=== PATIENT | female | born 1955 | race Caucasian/White ===

== ENCOUNTER 2016-09-28 17:29 | Inpatient (IN) | payer BC, OTHER ==
[2016-09-28] MEDS ORDERED: Sodium Chloride 0.9% 10 ML Syringe FLUSH PRN ×3 (18:23→19:55)
[2016-09-28] MEDS ORDERED: HYDROmorphone 1 MG/ML Syringe IVPUSH ONE (18:23)
--- NOTE | 2016-09-28 18:27 | EDM.PDOC ---
ED HPI GI/ABDOMINAL - General Chief Complaint: Abdominal Pain Stated Complaint: RT SIDE PAIN Time Seen by Provider: 09/28/16 18:13 Source: Reports: Patient, Family, RN notes reviewed History Limitations: Reports: No limitations - History of Present Illness INITIAL COMMENTS - FREE TEXT/NARRATIVE: 61-year-old female presents emergency department day complaint of right upper quadrant pain she states that the pain for last couple days it is constant in nature positions do make a difference worse when lying down no change with food denies any fevers nausea vomiting problems with bowel movements she still passing gas does have a history of gastric bypass 3 years ago - Related Data Allergies/ADRs: Allergies Allergy/AdvReac Type Severity Reaction Status Date / Time cefoxitin Allergy Nausea Verified 08/13/14 07:50 Home Meds: Home Meds Calcium Carb/Vit D3/Minerals [Calcium 1,200 mg Tablet Chew] 1 each PO BID [History] Cholecalciferol (Vitamin D3) [Vitamin D3] 5,000 unit PO DAILY 06/05/14 [History] Multivitamin [Multi Vitamin Daily] 1 each CHEW BID 06/05/14 [History] Vitamin B Complex [B Complex] 1 tab PO DAILY 06/05/14 [History] Pantoprazole [Protonix] 40 mg PO DAILY 08/13/14 [History] hydrOXYzine Pamoate [Hydroxyzine Pamoate] 25 mg PO ASDIRECTED PRN 09/28/16 [ History] Past Medical History Gastrointestinal History: Reports: GERD - Past Surgical History GI Surgical History: Reports: Bariatric procedure Female Surgical History: Reports: Hysterectomy Musculoskeletal Surgical History: Reports: Hip replacement Social & Family History - Tobacco Use Smoking Status *Q: Never Smoker Second Hand Smoke Exposure: No - Caffeine Use Caffeine Use: Reports: Coffee - Alcohol Use Days Per Week of Alcohol Use: 0 - Recreational Drug Use Recreational Drug Use: No ED ROS GENERAL - Review of Systems Review Of Systems: See Below Constitutional: Denies: fever, chills HEENT: Reports: No symptoms Respiratory: Reports: No Symptoms Cardiovascular: Reports: No symptoms GI/Abdominal: Reports: Abdominal pain, Flatus. Denies: Constipation, Diarrhea, Nausea, Vomiting : Reports: no symptoms Musculoskeletal: Reports: no symptoms Skin: Reports: no symptoms Neurological: Reports: No Symptoms ED EXAM, GI/ABD - Physical Exam Exam: See Below Exam Limited By: No limitations General Appearance: alert, WD/WN, no apparent distress Eyes: bilateral: normal appearance Head: atraumatic, normocephalic Respiratory/Chest: no respiratory distress, lungs clear, normal breath sounds, no accessory muscle use Cardiovascular: regular rate, rhythm, no murmur GI/Abdominal: normal bowel sounds, soft, no organomegaly, no distention, no abnormal bruit, no mass, tenderness (Right upper quadrant), guarding Back Exam: No: CVA tenderness (R), CVA tenderness (L) Course - Vital Signs Last Recorded V/S: Last Vital Signs Temp 96.4 F 09/28/16 19:46 Pulse 71 09/28/16 19:46 Resp 16 09/28/16 19:46 BP 118/72 09/28/16 19:46 Pulse Ox 98 09/28/16 19:46 - Orders/Labs/Meds Orders: Active Orders 24 hr Category Date Time Status Peripheral IV Care [RC] . DIRECTED Care 09/28/16 18:24 Active Abdomen Ltd [US] Urgent Exams 09/28/16 18:23 Taken Abdomen Pelvis w Cont [CT] Stat Exams 09/28/16 19:32 Taken Iopamidol [Isovue-300 (61%)] Med 09/28/16 20:00 Active 105 ml IV . DIRECTED Lactated Ringers [Ringers, Lactated] 1,000 ml Med 09/28/16 19:35 Active IV BOLUS Sodium Chloride 0.9% [Saline Flush] Med 09/28/16 18:23 Active 10 ml FLUSH ASDIRECTED PRN Sodium Chloride 0.9% [Saline Flush] Med 09/28/16 18:23 Active 10 ml FLUSH ASDIRECTED PRN Sodium Chloride 0.9% [Saline Flush] Med 09/28/16 19:55 Active 10 ml FLUSH ONETIME PRN Peripheral IV Insertion Adult [OM.PC] Urgent Oth 09/28/16 18:23 Ordered Medication Orders Lactated Ringer's (Ringers, Lactated) 1,000 mls @ 500 mls/hr IV BOLUS ONE Stop: 09/28/16 21:34 Last Admin: 09/28/16 19:42 Dose: 500 mls/hr Iopamidol (Isovue-300 (61%)) 105 ml IV . DIRECTED JAYA Last Admin: 09/28/16 20:06 Dose: 150 ml Sodium Chloride (Saline Flush) 10 ml FLUSH ASDIRECTED PRN PRN Reason: Keep Vein Open Last Admin: 09/28/16 18:40 Dose: 10 ml Sodium Chloride (Saline Flush) 10 ml FLUSH ASDIRECTED PRN PRN Reason: Keep Vein Open Last Admin: 09/28/16 18:44 Dose: 10 ml Sodium Chloride (Saline Flush) 10 ml FLUSH ONETIME PRN PRN Reason: PER RADIOLOGY PROTOCOL Last Admin: 09/28/16 20:06 Dose: 10 ml Labs: Laboratory Tests 09/28/16 09/28/16 09/28/16 Range/Units 18:31 18:38 18:38 WBC 8.2 (4.5-11.0) K/uL RBC 4.09 (3.30-5.50) M/uL Hgb 12.5 D (12.0-15.0) g/dL Hct 37.3 (36.0-48.0) % MCV 91 (80-98) fL MCH 31 (27-31) pg MCHC 34 (32-36) % Plt Count 408 H (150-400) K/uL Neut % (Auto) 58 (36-66) % Lymph % (Auto) 29 (24-44) % [place] % (Auto) 11 H (2-6) % Eos % (Auto) 2 (2-4) % Baso % (Auto) 1 (0-1) % Sodium 147 (140-148) mmol/L Potassium 4.4 (3.6-5.2) mmol/L Chloride 108 (100-108) mmol/L Carbon Dioxide 28 (21-32) mmol/L Anion Gap 10.6 (5.0-14.0) mmol/L BUN 12 (7-18) mg/dL Creatinine 0.7 (0.6-1.0) mg/dL Est Cr Clr Drug Dosing 73.80 mL/min Estimated GFR (MDRD) > 60 (>60) Glucose 81 (74-106) mg/dL Lactic Acid (0.4-2.0) mmol/L Calcium 8.5 (8.5-10.1) mg/dL Total Bilirubin 0.2 (0.2-1.0) mg/dL AST 26 (15-37) U/L ALT 35 (12-78) U/L Alkaline Phosphatase 133 H (46-116) U/L Total Protein 7.1 (6.4-8.2) g/dL Albumin 3.9 (3.4-5.0) g/dL Globulin 3.2 (2.3-3.5) g/dL Albumin/Globulin Ratio 1.2 (1.2-2.2) Lipase 196 (73-393) U/L Urine Color Yellow Urine Appearance Clear Urine pH 6.0 (4.5-8.0) Ur Specific [place] 1.010 (1.008-1.030) Urine Protein Negative (NEGATIVE) mg/dL Urine Glucose (UA) Normal (NEGATIVE) mg/dL Urine Ketones Negative (NEGATIVE) mg/dL Urine Occult Blood Negative (NEGATIVE) Urine Nitrite Negative (NEGATIVE) Urine Bilirubin Negative (NEGATIVE) Urine Urobilinogen Normal (NORMAL) mg/dL Ur Leukocyte Esterase Negative (NEGATIVE) Urine RBC 0-5 (0-5) Urine WBC Not seen (0-5) Ur Epithelial Cells Rare Amorphous Sediment Not seen Urine Bacteria Rare Urine Mucus Not seen 09/28/16 Range/Units 18:38 WBC (4.5-11.0) K/uL RBC (3.30-5.50) M/uL Hgb (12.0-15.0) g/dL Hct (36.0-48.0) % MCV (80-98) fL MCH (27-31) pg MCHC (32-36) % Plt Count (150-400) K/uL Neut % (Auto) (36-66) % Lymph % (Auto) (24-44) % [place] % (Auto) (2-6) % Eos % (Auto) (2-4) % Baso % (Auto) (0-1) % Sodium (140-148) mmol/L Potassium (3.6-5.2) mmol/L Chloride (100-108) mmol/L Carbon Dioxide (21-32) mmol/L Anion Gap (5.0-14.0) mmol/L BUN (7-18) mg/dL Creatinine (0.6-1.0) mg/dL Est Cr Clr Drug Dosing mL/min Estimated GFR (MDRD) (>60) Glucose (74-106) mg/dL Lactic Acid 0.8 (0.4-2.0) mmol/L Calcium (8.5-10.1) mg/dL Total Bilirubin (0.2-1.0) mg/dL AST (15-37) U/L ALT (12-78) U/L Alkaline Phosphatase (46-116) U/L Total Protein (6.4-8.2) g/dL Albumin (3.4-5.0) g/dL Globulin (2.3-3.5) g/dL Albumin/Globulin Ratio (1.2-2.2) Lipase (73-393) U/L Urine Color Urine Appearance Urine pH (4.5-8.0) Ur Specific [place] (1.008-1.030) Urine Protein (NEGATIVE) mg/dL Urine Glucose (UA) (NEGATIVE) mg/dL Urine Ketones (NEGATIVE) mg/dL Urine Occult Blood (NEGATIVE) Urine Nitrite (NEGATIVE) Urine Bilirubin (NEGATIVE) Urine Urobilinogen (NORMAL) mg/dL Ur Leukocyte Esterase (NEGATIVE) Urine RBC (0-5) Urine WBC (0-5) Ur Epithelial Cells Amorphous Sediment Urine Bacteria Urine Mucus Meds: Medications Generic Name Dose Route Start Last Admin Trade Name Freq PRN Reason Stop Dose Admin Lactated Ringer's 1,000 mls @ 500 mls/hr 09/28/16 19:35 09/28/16 19:42 Ringers, Lactated IV 09/28/16 21:34 500 mls/hr BOLUS ONE Administration Iopamidol 105 ml 09/28/16 20:00 09/28/16 20:06 Isovue-300 (61%) IV 150 ml . DIRECTED JAYA Administration Sodium Chloride 10 ml 09/28/16 18:23 09/28/16 18:40 Saline Flush FLUSH 10 ml ASDIRECTED PRN Administration Keep Vein Open Sodium Chloride 10 ml 09/28/16 18:23 09/28/16 18:44 Saline Flush FLUSH 10 ml ASDIRECTED PRN Administration Keep Vein Open Sodium Chloride 10 ml 09/28/16 19:55 09/28/16 20:06 Saline Flush FLUSH 10 ml ONETIME PRN Administration PER RADIOLOGY PROTOCOL Discontinued Medications Generic Name Dose Route Start Last Admin Trade Name Freq PRN Reason Stop Dose Admin Hydromorphone HCl 1 mg 09/28/16 18:23 09/28/16 18:40 Dilaudid IVPUSH 09/28/16 18:24 1 mg ONETIME ONE Administration Sodium Chloride 72 mls @ 3 mls/sec 09/28/16 19:55 09/28/16 20:06 Normal Saline IV 09/28/16 19:56 3 mls/sec ONETIME ONE Administration Departure - Departure Time of Disposition: 21:08 Disposition: Admitted As Inpatient 67 Condition: good Clinical Impression: Cholecystitis Forms: ED Department Discharge - My Orders Last 24 Hours: My Active Orders 09/28/16 18:23 Abdomen Ltd [US] Urgent Sodium Chloride 0.9% [Saline Flush] 10 ml FLUSH ASDIRECTED PRN Sodium Chloride 0.9% [Saline Flush] 10 ml FLUSH ASDIRECTED PRN Peripheral IV Insertion Adult [OM.PC] Urgent 09/28/16 18:24 Peripheral IV Care [RC] . DIRECTED 09/28/16 19:32 Abdomen Pelvis w Cont [CT] Stat 09/28/16 19:35 Lactated Ringers [Ringers, Lactated] 1,000 ml IV BOLUS 09/28/16 19:55 Sodium Chloride 0.9% [Saline Flush] 10 ml FLUSH ONETIME PRN 09/28/16 20:00 Iopamidol [Isovue-300 (61%)] 105 ml IV . DIRECTED - Assessment/Plan Last 24 Hours: My Active Orders 09/28/16 18:23 Abdomen Ltd [US] Urgent Sodium Chloride 0.9% [Saline Flush] 10 ml FLUSH ASDIRECTED PRN Sodium Chloride 0.9% [Saline Flush] 10 ml FLUSH ASDIRECTED PRN Peripheral IV Insertion Adult [OM.PC] Urgent 09/28/16 18:24 Peripheral IV Care [RC] . DIRECTED 09/28/16 19:32 Abdomen Pelvis w Cont [CT] Stat 09/28/16 19:35 Lactated Ringers [Ringers, Lactated] 1,000 ml IV BOLUS 09/28/16 19:55 Sodium Chloride 0.9% [Saline Flush] 10 ml FLUSH ONETIME PRN 09/28/16 20:00 Iopamidol [Isovue-300 (61%)] 105 ml IV . DIRECTED Plan: Assessment Acuity = acute Site and laterality = cholecystitis complicating the patient with known history gastric bypass Etiology = unknown etiology Manifestations = abdominal pain Location of injury = home Lab values = CBC, CMP, urinalysis unremarkable ultrasound demonstrates trace sludge in gallbladder lumen with the common bile duct enlargement of [address] scan demonstrates distended gallbladder with proximal gallbladder bowel the dilated and normal caliber distal duct also concern for partial small bowel obstruction Plan Called and discussed the case with Dr. 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 at midnight Patient was in agreement with the plan all questions were answered, This note was dictated using Link[employer] voice recognition software please call with any questions.
[2016-09-28] MEDS ORDERED: Lactated Ringers 1,000 ML IV ONE (19:35)
[2016-09-28] MEDS ORDERED: Iopamidol 612 MG/ML 150 ML Bottle IV SCH (20:00)
[2016-09-28] MEDS ORDERED: Zolpidem 5 MG Tab PO PRN (21:09)
[2016-09-28] MEDS ORDERED: HYDROmorphone 0.5 MG/0.5 ML Syringe IVPUSH PRN (21:12)
[2016-09-28] MEDS ORDERED: hydrOXYzine HCl 25 MG Tab PO PRN (21:14)
[2016-09-28] MEDS ORDERED: HYDROmorphone/Normal Saline 15 MG/30 ML PCA IV PRN (21:31)
[2016-09-28] MEDS: Lactated Ringers 1,000 ML IV SCH (22:06)
[2016-09-28] MEDS: Ampicillin/Sulbactam Na 3 GM in Sodium Chloride 0.9% 100 ML IV SCH (22:10)
[2016-09-29] MEDS: Ampicillin/Sulbactam Na 3 GM in Sodium Chloride 0.9% 100 ML IV SCH ×4 (03:34→21:54)
[2016-09-29] MEDS ORDERED: Naloxone 0.4 MG/ML SDV IV PRN (07:10)
[2016-09-29] MEDS: Pantoprazole 40 MG Tab.CR PO SCH (07:30)
[2016-09-29] MEDS ORDERED: hydrOXYzine HCl 25 MG Tab PO PRN (07:34)
[2016-09-29] MEDS: Lactated Ringers 1,000 ML IV SCH (07:39)
[2016-09-29] MEDS ORDERED: Bupivacaine 0.5%/EPINEPHrine 1:200,000 50 ML MDV ONE (09:26)
[2016-09-29] MEDS ORDERED: Dextrose 5%-Lactated Ringers 1,000 ML IV SCH (09:30)
[2016-09-29] MEDS: Ondansetron 4 MG/2 ML SDV IV PRN ×2 (10:08→18:33)
[2016-09-29] MEDS ORDERED: fentaNYL 250 MCG/5 ML SDV ONE ×2 (10:43→13:26)
[2016-09-29] MEDS ORDERED: Neostigmine Methylsulfate 1 MG/ML 5 ML Syringe ONE (10:44)
[2016-09-29] MEDS ORDERED: Rocuronium 50 MG/5 ML Vial ONE (10:44)
[2016-09-29] MEDS ORDERED: Propofol 200 MG/20 ML SDV ONE (10:44)
[2016-09-29] MEDS ORDERED: Ondansetron 4 MG/2 ML SDV ONE (10:44)
[2016-09-29] MEDS ORDERED: Succinylcholine/Normal Saline 200 MG/10 ML Syringe ONE (10:44)
[2016-09-29] MEDS ORDERED: Dexamethasone 4 MG/ML SDV ONE (10:44)
--- NOTE | 2016-09-29 12:19 | PCM.CONSN ---
- General Info Date of Service: 09/29/16 Functional Status: Reports: pain controlled - Review of Systems General: Reports: No Symptoms HEENT: Reports: no symptoms Pulmonary: Reports: no symptoms Cardiovascular: Reports: No Symptoms Gastrointestinal: Reports: Abdominal pain (right upper quadrant) Genitourinary: Reports: no symptoms Musculoskeletal: Reports: no symptoms Skin: Reports: no symptoms Neurological: Reports: No Symptoms Psychiatric: Reports: no symptoms - Patient Data Vitals - most recent: Last Vital Signs Temp 97.1 F 09/29/16 11:00 Pulse 58 L 09/29/16 11:00 Resp 12 09/29/16 11:00 BP 104/63 09/29/16 11:00 Pulse Ox 93 L 09/29/16 11:00 Weight - most recent: 157 lb 0.035 oz I&O - last 24 hours: Intake & Output 09/28/16 09/29/16 09/29/16 22:59 06:59 14:59 Intake Total 150 916 50 Balance 150 916 50 Lab Results last 24 hrs: Laboratory Results - last 24 hr 09/29/16 09/29/16 Range/Units 05:11 05:11 WBC 5.6 (4.5-11.0) K/uL RBC 3.68 (3.30-5.50) M/uL Hgb 11.3 L (12.0-15.0) g/dL Hct 33.8 L (36.0-48.0) % MCV 92 (80-98) fL MCH 31 (27-31) pg MCHC 33 (32-36) % Plt Count 326 (150-400) K/uL Neut % (Auto) 43 (36-66) % Lymph % (Auto) 43 (24-44) % [place] % (Auto) 10 H (2-6) % Eos % (Auto) 3 (2-4) % Baso % (Auto) 1 (0-1) % Sodium 147 (140-148) mmol/L Potassium 4.0 (3.6-5.2) mmol/L Chloride 110 H (100-108) mmol/L Carbon Dioxide 30 (21-32) mmol/L Anion Gap 11.0 (5.0-14.0) mmol/L BUN 10 (7-18) mg/dL Creatinine 0.7 (0.6-1.0) mg/dL Est Cr Clr Drug Dosing 73.80 mL/min Estimated GFR (MDRD) > 60 (>60) Glucose 83 (74-106) mg/dL Calcium 7.8 L (8.5-10.1) mg/dL Total Bilirubin 0.4 D (0.2-1.0) mg/dL AST 19 (15-37) U/L ALT 28 (12-78) U/L Alkaline Phosphatase 112 (46-116) U/L Total Protein 5.6 L (6.4-8.2) g/dL Albumin 3.0 L (3.4-5.0) g/dL Globulin 2.6 (2.3-3.5) g/dL Albumin/Globulin Ratio 1.2 (1.2-2.2) Med Orders - Current: Current Medications Calcium Carbonate (Caltrate 600+D 1500 Mg-400 Units) 1 tab PO BID [facility] Cholecalciferol (Vitamin D3) 5,000 units PO DAILY [facility] Hydromorphone HCl (Dilaudid Milk Sampler 15 Mg In Ns 30 Ml) 0 mg IV ASDIRECTED PRN; Protocol PRN 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 DIRECTED [facility] Last Admin: 09/28/16 20:06 Dose: 150 ml Multivitamins/Minerals (Thera M Plus) 1 tab PO BID [facility] Naloxone HCl (Narcan) 0.1 mg IV ASDIRECTED PRN PRN Reason: decreased respiratory rate Ondansetron HCl (Zofran) 4 mg IV Q4H PRN PRN Reason: Nausea/Vomiting Last Admin: 09/29/16 10:08 Dose: 4 mg Pantoprazole Sodium (Protonix) 40 mg PO ACBREAKFAST JAYA Last Admin: 09/29/16 07:30 Dose: Not Given Sodium Chloride (Saline Flush) 10 ml FLUSH ASDIRECTED PRN PRN Reason: Keep Vein Open Last Admin: 09/28/16 18:40 Dose: 10 ml Sodium Chloride (Saline Flush) 10 ml FLUSH ASDIRECTED PRN PRN Reason: Keep Vein Open Last Admin: 09/28/16 18:44 Dose: 10 ml Sodium Chloride (Saline Flush) 10 ml FLUSH ONETIME PRN PRN Reason: PER RADIOLOGY PROTOCOL Last Admin: 09/28/16 20:06 Dose: 10 ml Vitamin B Complex (Vitamin B Complex) 1 each PO DAILY [facility] Zolpidem Tartrate (Ambien) 5 mg PO BEDTIME PRN PRN Reason: Sleep Discontinued Medications Bupivacaine HCl/Epinephrine Bitart (Marcaine 0.5%/Epinephrine 1:200,000) Confirm Administered Dose 50 ml .ROUTE .STK-MED ONE Stop: 09/29/16 09:27 Dexamethasone (Dexamethasone) Confirm Administered Dose 4 mg .ROUTE .STK-MED ONE Stop: 09/29/16 10:45 Fentanyl (Sublimaze) Confirm Administered Dose 250 mcg .ROUTE .STK-MED ONE Stop: 09/29/16 10:44 Glycopyrrolate () Confirm Administered Dose 1 mg .ROUTE .STK-MED ONE Stop: 09/29/16 10:45 Hydromorphone HCl (Dilaudid) 1 mg IVPUSH ONETIME ONE Stop: 09/28/16 18:24 Last Admin: 09/28/16 18:40 Dose: 1 mg Hydroxyzine HCl (Atarax) 25 - 50 mg PO Q46H PRN PRN Reason: muscle spasms Lactated Ringer's (Ringers, Lactated) 1,000 mls @ 500 mls/hr IV BOLUS ONE Stop: 09/28/16 21:34 Last Admin: 09/28/16 19:42 Dose: 500 mls/hr Sodium Chloride (Normal Saline) 72 mls @ 3 mls/sec IV ONETIME ONE Stop: 09/28/16 19:56 Last Admin: 09/28/16 20:06 Dose: 3 mls/sec Aztreonam 1 gm/ Sodium (Chloride) 50 mls @ 100 mls/hr IV Q8H [facility] Last Admin: 09/29/16 05:46 Dose: 100 mls/hr Lactated Ringer's (Ringers, Lactated) 1,000 mls @ 125 mls/hr IV ASDIRECTED [facility] Last Admin: 09/29/16 07:39 Dose: 125 mls/hr Neostigmine Methylsulfate (Neostigmine) Confirm Administered Dose 5 mg .ROUTE .STK-MED ONE Stop: 09/29/16 10:45 Ondansetron HCl (Zofran) Confirm Administered Dose 4 mg .ROUTE .STK-MED ONE Stop: 09/29/16 10:45 Propofol (Diprivan 20 Ml) Confirm Administered Dose 200 mg .ROUTE .STK-MED ONE Stop: 09/29/16 10:45 Rocuronium [place]gs (Zemuron) Confirm Administered Dose 50 mg .ROUTE .STK-MED ONE Stop: 09/29/16 10:45 Succinylcholine Chloride (Succinylcholine In Ns Pf) Confirm Administered Dose 200 mg .ROUTE .STK-MED ONE Stop: 09/29/16 10:45 - Exam Quality Assessment: DVT prophylaxis General: alert, oriented HEENT: Pupils equal Neck: supple Lungs: Clear to auscultation, Normal respiratory effort Cardiovascular: Regular Rate, Regular Rhythm Abdomen: tenderness (right upper quadrant ) (Female) Exam: Deferred Back Exam: normal inspection, full range of motion Extremities: no edema Skin: warm, dry, intact Neurological: strength equal bilateral Psy/Mental Status: alert, normal affect, normal mood Consult PN Assessment/Plan POD#: 0 Procedures: Procedures BLOOD TYPING SEROLOGIC ABO (10/04/13) BLOOD TYPING SEROLOGIC RH(D) (10/04/13) CT LOWER EXTREMITY W/O DYE (02/18/16) EGD DILATE STRICTURE (08/13/14) EGD REMOVE FOREIGN BODY (06/05/14) HOT OR COLD PACKS THERAPY (09/01/15) KNEE ARTHROSCOPY/SURGERY (04/23/14) MANUAL THERAPY 1/> REGIONS (09/01/15) MRI JNT OF LWR EXTRE W/O DYE (09/10/15) PT EVALUATION (09/01/15) RBC ANTIBODY SCREEN (10/04/13) THERAPEUTIC EXERCISES (04/04/16) ULTRASOUND THERAPY (09/01/15) Problem List Initiated/Reviewed/Updated: Yes My Orders last 24 hours: My Active Orders 09/29/16 08:58 Verify Patient Consent Obtain [RC] ASDIRECTED 09/29/16 09:30 Dextrose 5%-Lactated Ringers 1,000 ml IV ASDIRECTED Plan: Plan: Schedule/Consent signed for Laparoscopic Cholecystectomy with possible Laparotomy for Cholecystitis, General Anesthesia, Adeel Saavedra MD - NPO Breana Rodriguez
[2016-09-29] MEDS: Vitamin B Complex Tab PO SCH (12:28)
[2016-09-29] MEDS: Calcium Carbonate/Vitamin D3 1500 MG-400 Units Tab PO SCH ×2 (12:28→21:48)
[2016-09-29] MEDS: Cholecalciferol (Vitamin D3) 1,000 Unit Tab PO SCH (12:28)
[2016-09-29] MEDS: Multivitamins with Iron/Calcium/Folic Acid/Minerals Tab PO SCH ×2 (12:28→21:48)
[2016-09-29] MEDS: Aztreonam/Dextrose-Water 1 GM in Premix Bag 1 BAG IV SCH ×3 (12:53→23:02)
[2016-09-29] MEDS ORDERED: Aztreonam/Dextrose-Water 1 GM in Premix Bag 1 BAG IV SCH (14:00)
[2016-09-29] MEDS ORDERED: Cyanocobalamin (Vitamin B12) 1,000 MCG/ML SDV IM ONE (17:00)
[2016-09-29] MEDS: Iron Sucrose Complex 500 MG in Sodium Chloride 0.9% 250 ML IV SCH (18:22)
[2016-09-29] MEDS: Acetaminophen/HYDROcodone 325-5 MG Tab PO PRN ×2 (20:03→23:31)
[2016-09-30] MEDS: Acetaminophen/HYDROcodone 325-5 MG Tab PO PRN ×4 (03:31→16:10)
[2016-09-30] MEDS: Ampicillin/Sulbactam Na 3 GM in Sodium Chloride 0.9% 100 ML IV SCH ×3 (03:32→14:08)
[2016-09-30] MEDS ORDERED: Benzocaine/Cetylpyridinium/Menthol Lozenge MUCMEM PRN (05:24)
[2016-09-30] MEDS: Aztreonam/Dextrose-Water 1 GM in Premix Bag 1 BAG IV SCH (05:42)
[2016-09-30] MEDS: Pantoprazole 40 MG Tab.CR PO SCH (07:30)
[2016-09-30] MEDS: Iron Sucrose Complex 500 MG in Sodium Chloride 0.9% 250 ML IV SCH (09:46)
[2016-09-30] MEDS: Vitamin B Complex Tab PO SCH (09:47)
[2016-09-30] MEDS: Multivitamins with Iron/Calcium/Folic Acid/Minerals Tab PO SCH (09:47)
[2016-09-30] MEDS: Cholecalciferol (Vitamin D3) 1,000 Unit Tab PO SCH (09:47)
[2016-09-30] MEDS: Calcium Carbonate/Vitamin D3 1500 MG-400 Units Tab PO SCH (09:47)
[2016-09-30 15:15] VITALS: BP 137/80
--- NOTE | 2016-10-01 01:49 | DISCH ---
ADMISSION DIAGNOSES: Acute cholecystectomy, status post Mateus-en-Y gastric bypass surgery, unspecified surgical malabsorption, B12 deficiency, and history of hip replacement. DISCHARGE DIAGNOSIS: Laparoscopic cholecystectomy for chronic cholecystitis and cholelithiasis. HISTORY: Breana Quintanilla is a 61-year-old female who presented to the emergency room with right upper quadrant pain. After preoperative evaluation, discussion of possible risks and possible complications, she wished to proceed with surgical procedure. HOSPITAL COURSE: Breana had her surgery on 09/29/2016. She had no operative complications. Her ferritin was 21, so she was given 500 mg of ferritin and it was repeated on the day of discharge. She had no adverse reactions to the ferritin. On postop day #1, her activity was good, her appetite adequate, pain was well managed, and she was able to be discharged to home. PHYSICAL EXAMINATION: GENERAL: Breana Quintanilla is a 61-year-old female. VITAL SIGNS: Height is 5 feet 4 inches, weight is 157 pounds. TPR is 98.1, 68, 18; blood pressure 104/52. HEENT: Negative. NECK: Supple. HEART: Regular rate and rhythm. LUNGS: Clear. ABDOMEN: Dressings dry and intact. Abdominal binder is on. EXTREMITIES: Without peripheral edema. DISPOSITION: Discharged to home. CONDITION: Stable and improving. FOLLOWUP APPOINTMENT: With Breana Beebe PA-C, on 10/08/2016 at 10:15 a.m. HOME MEDICATIONS: [place] 5/325 mg 1 to 2 every 4 hours p.r.n. pain, #50 and magnesium oxide 400 mg oral twice daily, #100. She is to have her iron profile panel done in 2 months from today, this will be drawn at the clinic. She is to continue her home medications as directed. DIET AFTER DISCHARGE: Regular diet as tolerated, step 4 gastric bypass diet. Drink 8 to 10 glasses of water a day. ACTIVITY: No lifting greater than 10 pounds for 2 weeks. Driving, do not drive on pain medication. Shower/bathing, may shower. Keep operative site clean and dry. Wear abdominal binder for 2 weeks and then as tolerated. Use incentive spirometer 10 times in a row every hour while awake for 2 weeks. Notify provider if any fever, increased pain, swelling, redness, drainage, nausea, or vomiting.
--- NOTE | 2016-10-04 09:42 | OR ---
DATE OF PROCEDURE: 09/29/2016 PREOPERATIVE DIAGNOSIS: Chronic cholecystitis and cholelithiasis. POSTOPERATIVE DIAGNOSIS: Chronic cholecystitis and cholelithiasis. OPERATIVE PROCEDURE: Laparoscopic cholecystectomy (57951). ANESTHESIA: General. INDICATION FOR PROCEDURE: This is a 61-year-old female presenting with what appears to be biliary colic. Workup revealed some sludge, as well as abnormal HIDA scan, and the patient is to undergo a cholecystectomy at this time. She is status post Mateus-en-Y gastric bypass, and we will also inspect the small bowel concurrently to make sure there is not a problem in that regard. Potential risks of the procedure including bleeding, infection, injury to underlying viscera, such as common bile duct, possible incomplete relief of symptoms post procedure were all reviewed, and the patient wishes to proceed. DETAILS OF PROCEDURE: The patient was taken to the operating room and placed in a supine position. After general endotracheal anesthesia was induced, the abdomen was prepped and draped. Just to the right of midline in the area just below the umbilicus, a transverse incision was made and peritoneal cavity entered under direct vision with Optiview trocar, inflated to 15 mmHg pressure with CO2. Laparoscope was then reinserted and no underlying trocar insertion site injuries were seen. Following this, a 5 mm right upper abdominal trocar, as well as the midline epigastric trocar were placed. The small bowel was initially evaluated. The Mateus limb was identified and traced down to the jejunojejunostomy, and the remainder of the common limb and Mateus limb were all unremarkable and in appropriate location. Attention was then taken to the gallbladder, which was quite distended and edematous, particularly in the area of the gallbladder neck and cystohepatic triangle. There were some omental adhesions that were taken down with Harmonic scalpel. Following this, the dissection was continued down around the gallbladder neck and cystic duct junction. Once that area was well-delineated, as was the adjacent cystic artery, both structures were clipped 3 times proximally, once distally, and divided. The gallbladder was dissected off the gallbladder bed using the Harmonic scalpel and delivered up through the upper midline port and contained a multitude of small stones within the gallbladder bile. The area of dissection was inspected. No bleeding or other problems were noted. A Jesus- Rodriguez drain was not felt to be necessary. The trocar sites were then sequentially closed with 0 Vicryl stitch at the 12 mm sites and the skin with 4-0 Vicryl stitch at each incision. The patient was taken to the recovery room in satisfactory condition. Physician assistant health educator, Breana Beebe, played an essential role in assisting in this case, helping to position the patient, retract structures as needed, as well as suturing and cutting sutures as indicated. Her presence improved the patient safety and decreased operative time. Adeel Saavedra MD /[id number]
== END 2016-09-30 16:45 | disposition home or self-care (01) | DRG 419 ==
LOC: JP.ED 17:29 → JP.MS 21:09 → OBSVTOIN 09-29 14:45
PROVIDERS: ADMIT Surgery; ATTEND Surgery
PROC: 0FT44ZZ Resection of Gallbladder, Percutaneous Endoscopic Approach (ICD-10-PCS; principal; 2016-09-29)
DX: K80.10 Calculus of gallbladder with chronic cholecystitis without obstruction (principal); E53.8 Deficiency of other specified B group vitamins; Z98.84 Bariatric surgery status; K21.9 Gastro-esophageal reflux disease without esophagitis; Z96.649 Presence of unspecified artificial hip joint
CPT/HCPCS: 36415; 74177; 76705; 80053; 81001; 82728; 83605; 83690; 83735; 84100; 85025; 85027; 88304; 94762; 96361; 96365; 96366; 96367; 96374; 96375; 99285-25; A9270-GY; G0378; J0295; J1100; J1170; J1756; J2405; J2704; J3010; J3420; J3490; J7030; J7042; J7050; J7120; S0073

== ENCOUNTER 2017-12-08 21:40 | Observation (INO) | payer OTHER ==
[2017-12-08] MEDS ORDERED: Lactated Ringers 1,000 ML IV SCH (22:45)
--- NOTE | 2017-12-08 22:52 | EDM.PDOC ---
ED HPI GENERAL MEDICAL PROBLEM - General Chief Complaint: Abdominal Pain Stated Complaint: STOMACH PAIN Time Seen by Provider: 12/08/17 22:32 Source of Information: Reports: Patient, Family, RN Notes Reviewed History Limitations: Reports: No Limitations - History of Present Illness INITIAL COMMENTS - FREE TEXT/NARRATIVE: 62-year-old female presents emergency department today with abdominal pain, she has a known history of gastric bypass states the abdominal pain came on suddenly around 8:30 this evening she was diaphoretic and short of breath EMS services were called had initial EKG done in the ambulance which demonstrated normal sinus rhythm she received 100 g of fentanyl which did provide some relief at this time she still rating her pain 6 out of 10 predominately in the left upper quadrant. 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: IV/IO, Other Medication(s), Other (see below) Other Treatments ELECTRIC SHAVER MECHANIC: NS, Zofran, Fentanyl Upper Left Abdomen Pain Score (Numeric/FACES): 8 - Related Data Allergies Allergy/AdvReac Type Severity Reaction Status Date / Time cefoxitin Allergy Nausea Verified 12/08/17 22:00 Home Meds: Home Meds Calcium Carb/Vit D3/Minerals [Calcium 1,200 mg Tablet Chew] 1 each PO DAILY [History] Cholecalciferol (Vitamin D3) [Vitamin D3] 5,000 unit PO DAILY 06/05/14 [History] Multivitamin [Multi-Vitamin Daily] 1 each CHEW BID 06/05/14 [History] Vitamin B Complex [B Complex] 1 tab PO DAILY 06/05/14 [History] Pantoprazole [ProTONIX] 40 mg PO DAILY 08/13/14 [History] Acetaminophen/HYDROcodone [[place] 325-5 MG] 1 - 2 tab PO Q4H PRN #50 tablet 09/30 [Rx] Past Medical History Gastrointestinal History: Reports: Gastritis 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: Reports: Fibroids - Infectious Disease History Infectious Disease History: Reports: Chicken Pox - Past Surgical History GI Surgical History: Reports: Bariatric Procedure, EGD Female Surgical History: Reports: Section, Hysterectomy Musculoskeletal Surgical History: Reports: Hip Replacement, Other (See Below) Social & Family History - Tobacco Use Smoking Status *Q: Never Smoker Second Hand Smoke Exposure: No - Caffeine Use Caffeine Use: Reports: Coffee - Recreational Drug Use Recreational Drug Use: No ED ROS GENERAL - Review of Systems Review Of Systems: See Below Constitutional: Denies: Fever, Chills HEENT: Reports: No Symptoms Respiratory: Reports: Shortness of Breath GI/Abdominal: Reports: Abdominal Pain, Nausea. Denies: Flatus, Vomiting : Reports: Frequency Musculoskeletal: Reports: No Symptoms Skin: Reports: No Symptoms Neurological: Reports: No Symptoms ED EXAM, GI/ABD - Physical Exam Exam: See Below Text/Narrative:: General: Female, mild discomfort secondary to pain, alert and oriented x3 HEENT: head is atraumatic normocephalic, eyes pupils equal round reactive to light, sclera clear no conjunctivitis appreciated. Ears tympanic membranes clear and rodriguez landmarks and light reflex are present bilaterally canals are clear. Nose no septal deviation, nares are clear, no blood present. Mouth mucosa is moist and pink no erythema or exudate noted in soft palate, tongue is midline uvula is midline, dentition is intact. Neck: Supple no thyromegaly no tracheal deviation. Nodes: Cervical nodes subclavicular nodes nontender no palpable lymphadenopathy noted. Lungs: clear to auscultation bilaterally with symmetrical respirations, no adventitious noise appreciated. CV: Regular rate and rhythm S1 and S2 appreciated no murmurs rubs or gallops noted. Abdomen: Soft, mild tenderness on the left side, no palpable masses or organomegaly appreciated, no distention no guarding bowel sounds are present, . Neuro: Cranial nerves II through XII grossly intact Skin: Warm and dry, intact Extremities: No lower extremity edema appreciated, pedal pulse is +2. Course - Vital Signs Last Recorded V/S: Last Vital Signs Temp 98 F 12/08/17 21:54 Pulse 59 L 12/08/17 21:54 Resp 13 12/08/17 21:54 BP 120/76 12/08/17 21:54 Pulse Ox 97 12/08/17 21:54 - Orders/Labs/Meds Orders: Active Orders 24 hr Category Date Time Status Admission Status [Patient Status] [ADT] Routine ADT 12/09/17 00:35 Active Abdomen Pelvis w Cont [CT] Urgent Exams 12/08/17 22:43 Taken UA W/MICROSCOPIC [URIN] Urgent Lab 12/08/17 23:12 Ordered Lactated Ringers [Ringers, Lactated] 1,000 ml Med 12/08/17 22:45 Active IV ASDIRECTED Medication Orders Lactated Ringer's (Ringers, Lactated) 1,000 mls @ 999 mls/hr IV ASDIRECTED JAYA Last Admin: 12/08/17 22:59 Dose: 999 mls/hr Labs: Laboratory Tests 12/08/17 12/08/17 12/08/17 Range/Units 22:50 22:50 22:50 WBC 8.4 (4.5-11.0) K/uL RBC 4.17 (3.30-5.50) M/uL Hgb 12.9 (12.0-15.0) g/dL Hct 38.7 (36.0-48.0) % MCV 93 (80-98) fL MCH 31 (27-31) pg MCHC 33 (32-36) % Plt Count 330 (150-400) K/uL Neut % (Auto) 77 H (36-66) % Lymph % (Auto) 14 L (24-44) % [place] % (Auto) 8 H (2-6) % Eos % (Auto) 1 L (2-4) % Baso % (Auto) 0 (0-1) % Sodium 142 (140-148) mmol/L Potassium 4.3 (3.6-5.2) mmol/L Chloride 106 (100-108) mmol/L Carbon Dioxide 26 (21-32) mmol/L Anion Gap 10.1 (5.0-14.0) mmol/L BUN 12 D (7-18) mg/dL Creatinine 0.7 (0.6-1.0) mg/dL Est Cr Clr Drug Dosing 72.88 mL/min Estimated GFR (MDRD) > 60 (>60) Glucose 115 H (74-106) mg/dL Lactic Acid 0.6 (0.4-2.0) mmol/L Calcium 8.6 (8.5-10.1) mg/dL Total Bilirubin 0.4 (0.2-1.0) mg/dL AST 199 H D (15-37) U/L ALT 104 H (12-78) U/L Alkaline Phosphatase 194 H (46-116) U/L CK-MB (CK-2) 1.0 (0-3.6) mg/mL Troponin I < 0.017 (0.000-0.056) ng/mL Total Protein 6.4 (6.4-8.2) g/dL Albumin 3.6 (3.4-5.0) g/dL Globulin 2.8 (2.3-3.5) g/dL Albumin/Globulin Ratio 1.3 (1.2-2.2) Lipase 160 (73-393) U/L Urine Color Urine Appearance Urine pH (4.5-8.0) Ur Specific [place] (1.008-1.030) Urine Protein (NEGATIVE) mg/dL Urine Glucose (UA) (NEGATIVE) mg/dL Urine Ketones (NEGATIVE) mg/dL Urine Occult Blood (NEGATIVE) Urine Nitrite (NEGATIVE) Urine Bilirubin (NEGATIVE) Urine Urobilinogen (NORMAL) mg/dL Ur Leukocyte Esterase (NEGATIVE) Urine RBC (0-5) Urine WBC (0-5) Ur Epithelial Cells Amorphous Sediment Urine Bacteria Urine Mucus 12/08/17 Range/Units 23:12 WBC (4.5-11.0) K/uL RBC (3.30-5.50) M/uL Hgb (12.0-15.0) g/dL Hct (36.0-48.0) % MCV (80-98) fL MCH (27-31) pg MCHC (32-36) % Plt Count (150-400) K/uL Neut % (Auto) (36-66) % Lymph % (Auto) (24-44) % [place] % (Auto) (2-6) % Eos % (Auto) (2-4) % Baso % (Auto) (0-1) % Sodium (140-148) mmol/L Potassium (3.6-5.2) mmol/L Chloride (100-108) mmol/L Carbon Dioxide (21-32) mmol/L Anion Gap (5.0-14.0) mmol/L BUN (7-18) mg/dL Creatinine (0.6-1.0) mg/dL Est Cr Clr Drug Dosing mL/min Estimated GFR (MDRD) (>60) Glucose (74-106) mg/dL Lactic Acid (0.4-2.0) mmol/L Calcium (8.5-10.1) mg/dL Total Bilirubin (0.2-1.0) mg/dL AST (15-37) U/L ALT (12-78) U/L Alkaline Phosphatase (46-116) U/L CK-MB (CK-2) (0-3.6) mg/mL Troponin I (0.000-0.056) ng/mL Total Protein (6.4-8.2) g/dL Albumin (3.4-5.0) g/dL Globulin (2.3-3.5) g/dL Albumin/Globulin Ratio (1.2-2.2) Lipase (73-393) U/L Urine Color Yellow Urine Appearance Clear Urine pH 6.0 (4.5-8.0) Ur Specific [place] 1.010 (1.008-1.030) Urine Protein Negative (NEGATIVE) mg/dL Urine Glucose (UA) Normal (NEGATIVE) mg/dL Urine Ketones Negative (NEGATIVE) mg/dL Urine Occult Blood Negative (NEGATIVE) Urine Nitrite Negative (NEGATIVE) Urine Bilirubin Negative (NEGATIVE) Urine Urobilinogen 1 (NORMAL) mg/dL Ur Leukocyte Esterase Negative (NEGATIVE) Urine RBC 0-5 (0-5) Urine WBC 0-5 (0-5) Ur Epithelial Cells Few Amorphous Sediment Not seen Urine Bacteria Few Urine Mucus Not seen Meds: Medications Generic Name Dose Route Start Last Admin Trade Name Freq PRN Reason Stop Dose Admin Lactated Ringer's 1,000 mls @ 999 mls/hr 12/08/17 22:45 12/08/17 22:59 Ringers, Lactated IV 999 mls/hr ASDIRECTED JAYA Administration Discontinued Medications Generic Name Dose Route Start Last Admin Trade Name Freq PRN Reason Stop Dose Admin Sodium Chloride 100 mls @ 85 mls/sec 12/08/17 23:29 12/08/17 23:37 Normal Saline IV 12/08/17 23:30 85 mls/sec ASDIRECTED STA Administration Iopamidol 150 ml 12/08/17 23:28 12/08/17 23:36 Isovue-300 (61%) IV 12/08/17 23:29 150 ml . DIRECTED STA Administration Departure - Departure Time of Disposition: 00:40 Disposition: Admitted As Inpatient 67 Condition: Fair Clinical Impression: Abdominal pain Qualifiers: Abdominal location: left upper quadrant Qualified Code(s): R10.12 - Left upper quadrant pain - Discharge Information Referrals: PCP,None [Primary Care Provider] - Forms: ED Department Discharge - My Orders Last 24 Hours: My Active Orders 12/08/17 22:43 Abdomen Pelvis w Cont [CT] Urgent 12/08/17 22:45 Lactated Ringers [Ringers, Lactated] 1,000 ml IV ASDIRECTED 12/08/17 23:12 UA W/MICROSCOPIC [URIN] Urgent - Assessment/Plan Last 24 Hours: My Active Orders 12/08/17 22:43 Abdomen Pelvis w Cont [CT] Urgent 12/08/17 22:45 Lactated Ringers [Ringers, Lactated] 1,000 ml IV ASDIRECTED 12/08/17 23:12 UA W/MICROSCOPIC [URIN] Urgent Plan: Assessment Acuity = acute Site and laterality = moderate periportal edema comp came patient with known history gastric bypass Etiology = unclear etiology Manifestations = abdominal pain Location of injury = Home Lab values = CBC, CMP unremarkable except for AST elevated 199 ALTs elevated 104 consistent elevated liver enzymes, CK-MB and troponin both negative, lipase within normal limits, urinalysis unremarkable CT scan describes the periportal edema Plan Called discussed case with Breana Beebe gastric bypass team she agreed to evaluate patient hospital for admission This note was dictated using [employer]ala[employer] voice recognition software please call with any questions on syntax or grammar.
[2017-12-08] MEDS ORDERED: Iopamidol 612 MG/ML 150 ML Bottle IV STA (23:28)
[2017-12-08] MEDS ORDERED: Sodium Chloride 0.9% 100 ML IV STA (23:29)
[2017-12-09] MEDS ORDERED: HYDROmorphone 1 MG/ML Syringe IVPUSH PRN (00:56)
[2017-12-09] MEDS ORDERED: Pantoprazole 40 MG Vial IVPUSH SCH (01:00)
[2017-12-09] MEDS ORDERED: Ondansetron 4 MG/2 ML SDV IVPUSH PRN (01:00)
[2017-12-09] MEDS ORDERED: Dextrose 5%-Lactated Ringers 1,000 ML IV SCH (01:00)
--- NOTE | 2017-12-09 08:29 | PCM.DCSUM1 ---
Discharge Summary - Discharge Data Discharge Date: 12/09/17 Discharge Disposition: Home, Self-Care 01 Condition: Stable - Patient Instructions Diet: Usual Diet as Tolerated, Drink 8-10+ Glasses/Day Activity: As Tolerated Showering/Bathing: May Shower Notify Provider of: Nausea and/or Vomiting - Discharge Plan Prescriptions/Med Rec: Hyoscyamine Sulfate [Levsin-Sl] 0.125 mg SL Q4HR PRN #30 tab.subl PRN Reason: esophageal spasms Pantoprazole [ProTONIX] 40 mg PO DAILY #30 tab.cr Home Medications: Home Meds Calcium Carb/Vit D3/Minerals [Calcium 1,200 mg Tablet Chew] 1 each PO DAILY [History] Cholecalciferol (Vitamin D3) [Vitamin D3] 5,000 unit PO DAILY 06/05/14 [History] Multivitamin [Multi-Vitamin Daily] 1 each CHEW BID 06/05/14 [History] Vitamin B Complex [B Complex] 1 tab PO DAILY 06/05/14 [History] Acetaminophen/HYDROcodone [[place] 325-5 MG] 1 - 2 tab PO Q4H PRN #50 tablet 09/30 [Rx] Hyoscyamine Sulfate [Levsin-Sl] 0.125 mg SL Q4HR PRN #30 tab.subl 12/09/17 [Rx] Pantoprazole [ProTONIX] 40 mg PO DAILY #30 tab.cr 12/09/17 [Rx] Referrals: Breana Beebe PA-C [Physician Forestry Support Specialist] - 12/14/17 2:30 pm - Discharge Summary/Plan Comment DC Time >30 min.: Yes Discharge Summary/Plan Comment: Rx Levsin 0.125 mg every 4 hours prn esophageal spasms - #30 Rx Protonix 40 mg po daily #30 with 11 refills Resume home medication Resume normal diet If return of abdominal pain to follow up in clinic or ED - General Info Date of Service: 12/09/17 Functional Status: Reports: Pain Controlled, Tolerating Diet - Review of Systems General: Reports: No Symptoms HEENT: Reports: No Symptoms Pulmonary: Reports: No Symptoms Cardiovascular: Reports: No Symptoms Gastrointestinal: Reports: No Symptoms Genitourinary: Reports: No Symptoms Musculoskeletal: Reports: No Symptoms Skin: Reports: No Symptoms Neurological: Reports: No Symptoms Psychiatric: Reports: No Symptoms - Patient Data Vitals - Most Recent: Last Vital Signs Temp 97.1 F 12/09/17 07:22 Pulse 65 12/09/17 07:22 Resp 16 12/09/17 07:22 BP 95/62 12/09/17 07:22 Pulse Ox 97 12/09/17 07:22 Weight - Most Recent: 346 lb 2.012 oz I&O - Last 24 hours: Intake & Output 12/08/17 12/09/17 12/09/17 22:59 06:59 14:59 Intake Total 573 409 Output Total 600 Balance -27 409 Lab Results - Last 24 hrs: Laboratory Results - last 24 hr 12/08/17 12/08/17 12/08/17 Range/Units 22:50 22:50 22:50 WBC 8.4 (4.5-11.0) K/uL RBC 4.17 (3.30-5.50) M/uL Hgb 12.9 (12.0-15.0) g/dL Hct 38.7 (36.0-48.0) % MCV 93 (80-98) fL MCH 31 (27-31) pg MCHC 33 (32-36) % Plt Count 330 (150-400) K/uL Neut % (Auto) 77 H (36-66) % Lymph % (Auto) 14 L (24-44) % [place] % (Auto) 8 H (2-6) % Eos % (Auto) 1 L (2-4) % Baso % (Auto) 0 (0-1) % Sodium 142 (140-148) mmol/L Potassium 4.3 (3.6-5.2) mmol/L Chloride 106 (100-108) mmol/L Carbon Dioxide 26 (21-32) mmol/L Anion Gap 10.1 (5.0-14.0) mmol/L BUN 12 D (7-18) mg/dL Creatinine 0.7 (0.6-1.0) mg/dL Est Cr Clr Drug Dosing 72.88 mL/min Estimated GFR (MDRD) > 60 (>60) Glucose 115 H (74-106) mg/dL Lactic Acid 0.6 (0.4-2.0) mmol/L Calcium 8.6 (8.5-10.1) mg/dL Total Bilirubin 0.4 (0.2-1.0) mg/dL AST 199 H D (15-37) U/L ALT 104 H (12-78) U/L Alkaline Phosphatase 194 H (46-116) U/L CK-MB (CK-2) 1.0 (0-3.6) mg/mL Troponin I < 0.017 (0.000-0.056) ng/mL Total Protein 6.4 (6.4-8.2) g/dL Albumin 3.6 (3.4-5.0) g/dL Globulin 2.8 (2.3-3.5) g/dL Albumin/Globulin Ratio 1.3 (1.2-2.2) Lipase 160 (73-393) U/L Urine Color Urine Appearance Urine pH (4.5-8.0) Ur Specific [place] (1.008-1.030) Urine Protein (NEGATIVE) mg/dL Urine Glucose (UA) (NEGATIVE) mg/dL Urine Ketones (NEGATIVE) mg/dL Urine Occult Blood (NEGATIVE) Urine Nitrite (NEGATIVE) Urine Bilirubin (NEGATIVE) Urine Urobilinogen (NORMAL) mg/dL Ur Leukocyte Esterase (NEGATIVE) Urine RBC (0-5) Urine WBC (0-5) Ur Epithelial Cells Amorphous Sediment Urine Bacteria Urine Mucus 12/08/17 Range/Units 23:12 WBC (4.5-11.0) K/uL RBC (3.30-5.50) M/uL Hgb (12.0-15.0) g/dL Hct (36.0-48.0) % MCV (80-98) fL MCH (27-31) pg MCHC (32-36) % Plt Count (150-400) K/uL Neut % (Auto) (36-66) % Lymph % (Auto) (24-44) % [place] % (Auto) (2-6) % Eos % (Auto) (2-4) % Baso % (Auto) (0-1) % Sodium (140-148) mmol/L Potassium (3.6-5.2) mmol/L Chloride (100-108) mmol/L Carbon Dioxide (21-32) mmol/L Anion Gap (5.0-14.0) mmol/L BUN (7-18) mg/dL Creatinine (0.6-1.0) mg/dL Est Cr Clr Drug Dosing mL/min Estimated GFR (MDRD) (>60) Glucose (74-106) mg/dL Lactic Acid (0.4-2.0) mmol/L Calcium (8.5-10.1) mg/dL Total Bilirubin (0.2-1.0) mg/dL AST (15-37) U/L ALT (12-78) U/L Alkaline Phosphatase (46-116) U/L CK-MB (CK-2) (0-3.6) mg/mL Troponin I (0.000-0.056) ng/mL Total Protein (6.4-8.2) g/dL Albumin (3.4-5.0) g/dL Globulin (2.3-3.5) g/dL Albumin/Globulin Ratio (1.2-2.2) Lipase (73-393) U/L Urine Color Yellow Urine Appearance Clear Urine pH 6.0 (4.5-8.0) Ur Specific [place] 1.010 (1.008-1.030) Urine Protein Negative (NEGATIVE) mg/dL Urine Glucose (UA) Normal (NEGATIVE) mg/dL Urine Ketones Negative (NEGATIVE) mg/dL Urine Occult Blood Negative (NEGATIVE) Urine Nitrite Negative (NEGATIVE) Urine Bilirubin Negative (NEGATIVE) Urine Urobilinogen 1 (NORMAL) mg/dL Ur Leukocyte Esterase Negative (NEGATIVE) Urine RBC 0-5 (0-5) Urine WBC 0-5 (0-5) Ur Epithelial Cells Few Amorphous Sediment Not seen Urine Bacteria Few Urine Mucus Not seen Med Orders - Current: Current Medications Hydromorphone HCl (Dilaudid) 1 mg IVPUSH Q2H PRN PRN Reason: Pain Lactated Ringer's (Ringers, Lactated) 1,000 mls @ 999 mls/hr IV ASDIRECTED [facility] Last Admin: 12/08/17 22:59 Dose: 999 mls/hr Dextrose/Lactated Ringer's (Dextrose 5%-Lactated Ringers) 1,000 mls @ 150 mls/ hr IV ASDIRECTED [facility] Last Admin: 12/09/17 01:30 Dose: 150 mls/hr Ondansetron HCl (Zofran) 4 mg IVPUSH Q4H PRN PRN Reason: Nausea/Vomiting Pantoprazole Sodium (Protonix) 40 mg PO ACBREAKFAST [facility] Discontinued Medications Sodium Chloride (Normal Saline) 100 mls @ 85 mls/sec IV ASDIRECTED STA Stop: 12/08/17 23:30 Last Admin: 12/08/17 23:37 Dose: 85 mls/sec Iopamidol (Isovue-300 (61%)) 150 ml IV . DIRECTED STA Stop: 12/08/17 23:29 Last Admin: 12/08/17 23:36 Dose: 150 ml Pantoprazole Sodium (Protonix Iv) 40 mg IVPUSH Q24H JAYA Last Admin: 12/09/17 01:34 Dose: 40 mg - Exam Quality Assessment: Reports: DVT Prophylaxis General: Reports: Alert, Oriented, Cooperative, No Acute Distress HEENT: Reports: Pupils Equal, Pupils Reactive Neck: Reports: Supple Lungs: Reports: Clear to Auscultation, Normal Respiratory Effort Cardiovascular: Reports: Regular Rate, Regular Rhythm GI/Abdominal Exam: Soft, Non-Tender, No Distention (Female) Exam: Deferred Rectal (Female) Exam: Deferred Back Exam: Reports: Normal Inspection, Full Range of Motion Extremities: Normal Inspection, Normal Range of Motion Skin: Reports: Warm, Dry, Intact Neurological: Reports: No New Focal Deficit, Normal Gait, Normal Speech Psy/Mental Status: Reports: Alert, Normal Affect, Normal Mood
[2017-12-09] MEDS ORDERED: Pantoprazole 40 MG Tab.CR PO SCH (09:00)
[2017-12-09 10:57] VITALS: BP 114/63
== END 2017-12-09 12:10 | disposition home or self-care (01) ==
LOC: JP.ED 21:40 → JP.MS 12-09 00:35
PROVIDERS: ADMIT Surgery; ATTEND Surgery
DX: R10.12 Left upper quadrant pain (principal); N28.1 Cyst of kidney, acquired; Z88.1 Allergy status to other antibiotic agents; Z98.84 Bariatric surgery status; Z79.899 Other long term (current) drug therapy
CPT/HCPCS: 36415; 74177; 80053; 81001; 82553; 83605; 83690; 84484; 85025; 96360; 99285; A9270; C9113; J7030; J7042; J7120; 96361; 96374; G0378

== ENCOUNTER 2020-10-21 06:48 | Day surgery (SDC) | payer BC, OTHER ==
[2020-10-21] MEDS ORDERED: Sodium Chloride 0.9% 1,000 ML IV SCH (07:15)
[2020-10-21] MEDS ORDERED: Propofol 200 MG/20 ML SDV ONE (07:23)
[2020-10-21] MEDS ORDERED: Midazolam 1 MG/ML 2 ML SDV ONE (07:23)
[2020-10-21] MEDS ORDERED: fentaNYL 100 MCG/2 ML SDV ONE (07:23)
[2020-10-21 09:33] VITALS: BP 101/70; PULSE 67
--- NOTE | 2020-10-21 12:34 | OR ---
DATE OF PROCEDURE: 10/21/2020 SURGEON: Mauro Stein MD PROCEDURES: 1. Esophagogastroduodenoscopy. 2. Colonoscopy. FINDINGS: 1. Mild narrowing of GE junction (dilated using 45-[place] balloon). 2. Normal colonoscopy. 3. Most likely etiology of diarrhea is diet related secondary to Mateus-en-Y. COMPLICATIONS: None. FUNDRAISING DIRECTOR: None. ANESTHESIA: MAC. PREOPERATIVE DIAGNOSES: Diarrhea and dysphagia. POSTOPERATIVE DIAGNOSES: Diarrhea and dysphagia. RISKS: Risks, benefits, alternatives, and limitations including but not limited to infection, bleeding, perforation, false positives, false negatives were explained to the patient and she wished to proceed. PROCEDURE IN DETAIL: The patient was placed in left lateral decubitus position. The EGD scope was introduced and advanced atraumatically into the Mate[place]-en-Y limb. There was no evidence of inflammation or bleeding. The pouch was appropriately sized. No evidence of marginal ulceration. The gastrojejunal anastomosis noted to be narrow. This was dilated using 45-[place] balloon. The GE junction and its associated esophagus was also inspected without abnormality. A digital rectal exam was performed next. Scope was introduced and advanced atraumatically to the ileocecal valve. A photo was taken of the appendiceal orifice. Scope was brought back to the ascending, transverse, descending colon, and retroflexed. No evidence of old or new blood. No masses. No polyps. No evidence of colitis or bleeding. No abnormalities on retroflexion. The prep was acceptable, approximately 90% of the luminal surface could be seen. Greater than 8 minutes was spent removing the scope. The patient tolerated the procedure well. Mauro Stein MD /[id number]
== END 2020-10-21 09:40 | disposition home or self-care (01) ==
LOC: JP.SDS 06:48
PROVIDERS: ATTEND Surgery
DX: K22.2 Esophageal obstruction (principal); R19.7 Diarrhea, unspecified; Z98.84 Bariatric surgery status; Z88.8 Allergy status to other drugs, medicaments and biological substances
CPT/HCPCS: J2250; J2704; J3010; J7030

== ENCOUNTER 2020-11-25 07:28 | Day surgery (SDC) | payer BC ==
[~2020-11-25 07:28] MED LIST: Midazolam 1 MG/ML 2 ML SDV ONE; Propofol 200 MG/20 ML SDV ONE; fentaNYL 100 MCG/2 ML SDV ONE
[2020-11-25] MEDS ORDERED: Dextrose 5%-Lactated Ringers 1,000 ML IV SCH (08:00)
[2020-11-25 10:12] VITALS: BP 97/54; PULSE 78
--- NOTE | 2020-12-03 13:40 | OR ---
DATE OF PROCEDURE: 11/25/2020 SURGEON: Adeel Saavedra MD PREOPERATIVE DIAGNOSIS: Rule out microscopic colitis. POSTOPERATIVE DIAGNOSIS: Rule out microscopic colitis. OPERATIVE PROCEDURES: Flexible colonoscopy with: 1. Random colorectal biopsies to rule out microscopic colitis. 2. Collection of stool for microbiologic workup. ANESTHESIA: IV sedation. INDICATION FOR PROCEDURE: The patient presents for a followup colonoscopy for biopsies to rule out microscopic colitis as she has been having some frequent loose bowel movements and diarrhea. Plan is to proceed with colonoscopy with biopsies as noted above. We will also obtain some stool for microbiologic workup to make sure we are not missing something in that regard. Potential risks including bleeding and perforation were discussed, and the patient wishes to proceed. DETAILS OF PROCEDURE: The patient was taken to the operating room and placed in a left lateral decubitus position. IV sedation was administered, after which the initial digital rectal exam was performed and was unremarkable. Colonoscope was then passed into the rectum with retroflexion revealing uncomplicated hemorrhoidal columns. Scope was eventually passed to the level of the cecum. The prep was fairly good. Only a small amount of liquid stool was present and this was evacuated for microbiologic workup. The patient was noted to have limited amount of left colonic diverticulosis, which was otherwise uncomplicated. Otherwise, there is no gross colitis present. No polyps or other signs of neoplasia. Multiple biopsies were then obtained from the cecum down through the length of the colon and into the rectum and sent for histologic evaluation. Minimal bleeding from the biopsy sites was seen and the procedure then concluded. The patient will be set up to see Radha Galicia PA-C, [facility] in 1 week. Adeel Saavedra MD /[id number]
== END 2020-11-25 10:23 | disposition home or self-care (01) ==
LOC: JP.SDS 07:28
PROVIDERS: ATTEND Surgery
DX: K57.30 Diverticulosis of large intestine without perforation or abscess without bleeding (principal); K64.9 Unspecified hemorrhoids; K63.89 Other specified diseases of intestine
CPT/HCPCS: 45380; 87046; 87177; 87209; 87493; 87899; 88305; 89055; J2250; J2704; J3010; J7121